=== PATIENT | female | born 1960 | race Caucasian/White ===

== ENCOUNTER 2021-07-24 13:18 | Emergency (ER) | payer OTHER, MEDICARE ==
[~2021-07-24] VITALS: Ht 162.6 cm; Wt 104.3 kg
[~2021-07-24 13:18] MED LIST: ASPI81CH PO; ATOR40TA PO; LANS30EC PO; LOPE2C PO; Zofran Odt4 MG SL
[2021-07-24] MEDS ORDERED: AMOCLA875 PO (15:00)
== END 2021-07-24 16:57 | disposition home or self-care (01) ==
LOC: ER 13:18
DX: S51.851A Open bite of right forearm, initial encounter (principal); W54.0XXA Bitten by dog, initial encounter; Z88.8 Allergy status to other drugs, medicaments and biological substances; Z79.899 Other long term (current) drug therapy; Z79.84 Long term (current) use of oral hypoglycemic drugs
CPT/HCPCS: 73090; 90471; 90714; 96372; 99283-25; A9270; J1885

== ENCOUNTER 2021-07-28 00:59 | Day surgery (SDC) | payer MEDICARE, OTHER ==
[~2021-07-28 00:59] MED LIST changes: +AMOCLA875 PO
== END 2021-07-28 23:02 | disposition home or self-care (01) ==
LOC: WOUND 00:59
DX: S51.801A Unspecified open wound of right forearm, initial encounter (principal); L08.9 Local infection of the skin and subcutaneous tissue, unspecified
CPT/HCPCS: A9270; G0463

== ENCOUNTER 2021-08-11 01:00 | Day surgery (SDC) | payer OTHER, MEDICARE | END 2021-08-11 23:50 | disposition home or self-care (01) | LOC: WOUND 01:00 | DX: S51.851A Open bite of right forearm, initial encounter (principal); S51.801A Unspecified open wound of right forearm, initial encounter; W54.0XXA Bitten by dog, initial encounter | CPT/HCPCS: A9270; G0463 ==

== ENCOUNTER 2021-08-26 02:20 | Day surgery (SDC) | payer MEDICARE, OTHER | END 2021-08-26 23:59 | disposition home or self-care (01) | LOC: WOUND 02:20 | DX: S51.851D Open bite of right forearm, subsequent encounter (principal); W54.0XXD Bitten by dog, subsequent encounter | CPT/HCPCS: A9270; G0463 ==